=== PATIENT | female | born 1990 | race Caucasian/White ===

== ENCOUNTER → 2016-10-21 19:06 | Observation (INO) ==
[2016-10-21 15:00] LABS: Bilirubin,Urine Negative (Negative); Blood,Urine Negative (Negative); Clarity,Urine Clear (Clear); Color,Urine Yellow (Yellow); Glucose,Urine (UA) Normal (Normal); Ketones,Urine Negative (Negative); Leukocyte Esterase,Urine Small (Negative); Nitrite,Urine Negative (Negative); Protein,Urine Trace mg/dL (Neg-Trace); Specific Gravity,Urine 1.018 (1.010-1.025); Urobilinogen,Urine Normal (Normal)
[2016-10-21 15:03] LABS: Bacteria,Urine None Seen per hpf (None-Few); Hyaline Casts,Urine None Seen per lpf (None-Few); RBC,Urine 0-3 per hpf (0-3); Squamous Epithelial Cell,Urine Many per lpf (None-Few)
--- NOTE | 2016-10-21 15:19 | OB/GYN Progress Note ---
Date of Encounter: 10/21/16 Time of Encounter: 15:15 - Assessment and Plan (1) uterine contractions in third trimester, antepartum Current Visit: Yes Status: Acute admit for observation. (2) 34 weeks gestation of Current Visit: No Status: Acute labor evaluation. Subjective - Subjective Principal diagnosis: contractions Interval history: Patient is 26 y/o at 34w5d presents to labor and delivery with complaints of contractions that have off and on for a couple of days. Patient reports +FM, patient denies LOF or vaginal bleeding. Patient denies any urinary symptoms. Antepartum ROS: movement normal, contractions, no loss of fluid, no vaginal bleeding Objective - Vital Signs Vital Signs: Intake and Output 10/20/16 10/21/16 10/21/16 23:59 07:59 15:59 Other: Weight 59.6 kg Patient Weight 10/21/16 23:59 Weight 59.6 kg - Exam FHR: auscultation normal, category 1 FHR comments: 140 bpm moderate variability +15x15 accels no decels noted. irregular contractions Auscultation: bilateral: normal Abdomen: Present: normal appearance, soft, gravid Uterus: Present: normal, firm Cervical dilation: 1 Cervix effacement: 70 station: -1 - Labs Labs: Abnormal lab results Ur Leukocyte Esterase Small (Negative) H 10/21/16 14:45 Urine Microscopic WBC 3-5 per hpf (0-3) H 10/21/16 14:45 Ur Squamous Epith Cells Many per lpf (None-Few) H 10/21/16 14:45 Ur Culture Indicated? YES (NO) A 10/21/16 14:45
[~2016-10-21 19:06] MED LIST: *HR* Morphine 10 MG/ML VIAL SQ ONE; Mag Hydrox/Al Hydrox/Simeth 30 ML UDC PO PRN
== END | disposition home or self-care (01) ==
LOC: 1NENULAB
PROVIDERS: ADMIT Advanced Practice Midwife; ATTEND Obstetrics & Gynecology

== ENCOUNTER → 2016-10-22 22:10 | Observation (INO) ==
--- NOTE | 2016-10-23 11:56 | OB/GYN Progress Note ---
Date of Encounter: 10/22/16 Time of Encounter: 21:30 - Assessment and Plan (1) 35 weeks gestation of Status: Acute Pt with no cervical change and negative nitrazine. No fluid leaking while in triage. Discharge home with precautions. Pt to follow-up in the morning in the office if she has additional leaking during the night. (2) Vaginal discharge during in third trimester Status: Acute Subjective - Subjective Interval history: Pt presented to L&D at 35 weeks with c/o leaking fluid. She was evaluated by nursing staff. Antepartum ROS: loss of fluid, movement normal, no vaginal bleeding, no contractions Objective - Exam FHR comments: NST reactive per RN. Cervical dilation: 2cm per RN, unchanged during stay Comments: nitrazine negative per RN
== END | disposition home or self-care (01) ==
LOC: 1NENULAB
PROVIDERS: ADMIT Registered Nurse; ATTEND Registered Nurse

== ENCOUNTER → 2016-10-28 20:31 | Observation (INO) ==
[2016-10-28 19:12] LABS: Bilirubin,Urine Negative (Negative); Blood,Urine Negative (Negative); Clarity,Urine Clear (Clear); Color,Urine Yellow (Yellow); Glucose,Urine (UA) Normal (Normal); Ketones,Urine 15 mg/dL (Negative); Leukocyte Esterase,Urine Trace (Negative); Nitrite,Urine Negative (Negative); Protein,Urine Negative (Neg-Trace); Specific Gravity,Urine 1.015 (1.010-1.025); Urobilinogen,Urine Normal (Normal)
[2016-10-28 19:17] LABS: Bacteria,Urine None Seen per hpf (None-Few); Hyaline Casts,Urine None Seen per lpf (None-Few); RBC,Urine 0-3 per hpf (0-3); Squamous Epithelial Cell,Urine Many per lpf (None-Few)
--- NOTE | 2016-10-28 21:12 | Discharge Summary ---
Date of Encounter: 10/28/16 Time of Encounter: 21:10 - Discharge Diagnosis (1) False labor before 37 completed weeks of gestation Priority: Primary Status: Acute Comments: Patient was assess by RN No cervical change discharge home follow up in office as scheduled. Qualifiers: Trimester: third trimester Qualified Code(s): O47.03 - False labor before 37 completed weeks of gestation, third trimester (2) NST (non-stress test) reactive Priority: Secondary Status: Acute Comments: FHR baseline 135 bpm moderate variability +15x15 accels no decels noted. Occasional contraction noted. CAT 1 tracing - Discharge Medications Home Medications: Albuterol Sulfate [Albuterol Inhaler] 2 puff IH Q4HR PRN 09/15/16 [History] Calcium Carbonate [Tums] 1 tab PO PRN PRN 10/19/16 [History] Ferrous Sulfate 1 tab PO DAILY 10/19/16 [History] Ranitidine HCl [Acid Hair Rooting Machine Operator] 1 tab PO PRN PRN 10/19/16 [History] Allergies/Adverse Reactions: Allergies No Known Allergies Allergy (Verified 10/19/16 16:36) Data Procedures and tests throughout hospitalization: Laboratory Tests 10/28/16 18:53 Urine Color Yellow Urine Clarity Clear Urine pH 7.0 Ur Specific [place] 1.015 Urine Protein Negative Urine Glucose (UA) Normal Urine Ketones 15 H Urine Blood Negative Urine Nitrite Negative Urine Bilirubin Negative Urine Urobilinogen Normal Ur Leukocyte Esterase Trace H Urine Microscopic RBC 0-3 Urine Microscopic WBC 3-5 H Ur Squamous Epith Cells Many H Urine Bacteria None Seen Hyaline Casts None Seen Ur Culture Indicated? YES A Labs on day of discharge: Labs from last 24 hours 10/28/16 18:53 Urine Color Yellow Urine Clarity Clear Urine pH 7.0 Ur Specific [place] 1.015 Urine Protein Negative Urine Glucose (UA) Normal Urine Ketones 15 H Urine Blood Negative Urine Nitrite Negative Urine Bilirubin Negative Urine Urobilinogen Normal Ur Leukocyte Esterase Trace H Urine Microscopic RBC 0-3 Urine Microscopic WBC 3-5 H Ur Squamous Epith Cells Many H Urine Bacteria None Seen Hyaline Casts None Seen Ur Culture Indicated? YES A Date of admission: 10/28/16 18:42 Discharging clinician: Ruma Carlos Anticipated date of discharge: 10/28/16 - Patient Status Disposition: Home, Self-Care - Discharge Instructions Additional Instructions: LABOR AND DELIVERY DISCHARGE INSTRUCTIONS Signs and Symptoms to be Reported to your Doctor Immediately: * Sudden gush, continuous or intermittent lead of fluid from vagina (note the time of gush and color of fluid) * Onset of bright red vaginal bleeding with or without pain (if you had a vaginal exam during this visit you may notice some dark red spotting. This is normal.) * Lower abdominal cramping or backache that is premenstrual-like feeling. * More than 6 contractions in one hour. * Burning during urination, having to urinate more frequently or pain in your mid-back. * A change in the baby's activity. This could be an increase or decrease in activity. * Severe headache which does not go away with tylenol. * Sudden swelling in the face, hands, arms and/or legs. * Upper abdominal pain - sometimes associated with heartburn or nausea and is not relieved by Maalox, Mylanta or Tums. * Dizziness or blurred vision or visual disturbances (seeing stars/lights). * Kick Counts One hour after a meal, lay down on one side in a quiet place. Count the number of lupe the baby moves during an hour. If less than 6 movements, notify your physician. Diet: *Force fluids - 8-10 tall glasses of fluid per day. May include popsicles and jello. *Limit caffeine - this includes chocolate, coffee, tea, any soft drink containing such as all james, Ivan Yellow and Mountain Dew Hospital Course MIRROR PAINTER Time Attestation: Total time spent providing and/or coordinating discharge services: - VTE Reasons for not Prescribing Prophylaxis: Treatment not Indicated - Low risk for VTE
== END | disposition home or self-care (01) ==
LOC: 1NENULAB
PROVIDERS: ADMIT Obstetrics & Gynecology; ATTEND Obstetrics & Gynecology

== ENCOUNTER → 2016-10-31 01:00 | Observation (INO) ==
[2016-10-31 00:23] LABS: Bilirubin,Urine Negative (Negative); Blood,Urine Negative (Negative); Color,Urine Yellow (Yellow); Glucose,Urine (UA) Normal (Normal); Ketones,Urine Negative (Negative); Leukocyte Esterase,Urine Moderate (Negative); Nitrite,Urine Negative (Negative); Protein,Urine Negative (Neg-Trace); Specific Gravity,Urine 1.014 (1.010-1.025); Urobilinogen,Urine Normal (Normal)
[2016-10-31 00:25] LABS: Bacteria,Urine Few per hpf (None-Few); Hyaline Casts,Urine None Seen per lpf (None-Few); RBC,Urine 0-3 per hpf (0-3); Squamous Epithelial Cell,Urine Many per lpf (None-Few)
[2016-10-31 00:26] LABS: Clarity,Urine Hazy (Clear)
--- NOTE | 2016-11-09 15:05 | OB/GYN Progress Note ---
Date of Encounter: 10/31/16 Time of Encounter: 00:10 - Assessment and Plan (1) False labor Status: Acute No cervical change per RN. Discharge home with precautions. Subjective - Subjective Interval history: Pt presenting with c/o contractions and feeling dehydrated. She was evaluated by nursing staff. Antepartum ROS: movement normal, contractions, no loss of fluid, no vaginal bleeding Objective - Exam FHR comments: FHT reassuring per RN - Labs Labs: Abnormal lab results Urine Clarity Hazy (Clear) A 10/30/16 23:50 Ur Leukocyte Esterase Moderate (Negative) H 10/30/16 23:50 Urine Microscopic WBC 5-15 per hpf (0-3) H 10/30/16 23:50 Ur Squamous Epith Cells Many per lpf (None-Few) H 10/30/16 23:50 Ur Culture Indicated? YES (NO) A 10/30/16 23:50
== END | disposition home or self-care (01) ==
LOC: 1NENULAB
PROVIDERS: ADMIT Registered Nurse; ATTEND Registered Nurse

== ENCOUNTER 2016-11-21 05:30 | Inpatient (IN) ==
[2016-11-21] MEDS ORDERED: Famotidine 20 MG/2 ML VIAL IVP PRN (06:05)
[2016-11-21] MEDS ORDERED: Naloxone 0.4 MG/ML INJ IVP PRN (06:05)
[2016-11-21] MEDS ORDERED: Metoclopramide 10 MG/2 ML VIAL IVP PRN (06:05)
[2016-11-21] MEDS ORDERED: *HR* Nalbuphine 20 MG/ML AMPUL IVP PRN (06:08)
[2016-11-21] MEDS ORDERED: Oxytocin 20 units/ LR 1000 mL 20 UNIT/1,000 ML BAG IVC SCH (06:15)
[2016-11-21 07:04] LABS: Basophils % 0.3 %; Eosinophils # 0.1 K/mcL (0.0-0.6); Eosinophils % 0.6 %; Hemoglobin 9.6 g/dL (11.5-15.4); Immature Granulocytes % 0.7 % (0-4); Lymphocytes # 1.7 K/mcL (0.6-4.6); Lymphocytes % 18.8 %; Mean Corpuscular HGB Conc 34.3 g/dL (31.6-35.5); Mean Corpuscular Volume 87.5 fL (83.0-100.0); Mean Platelet Volume 10.6 fL (9.4-12.4); Monocytes # 0.8 K/mcL (0.0-1.3); Monocytes % 8.3 %; Neutrophils # 6.5 K/mcL (1.6-8.9); Platelet Count 167 K/mcL (140-400); Red Cell Distribution Width 12.5 % (11.5-14.5); Segmented Neutrophils % 71.3 %
[2016-11-21] MEDS ORDERED: Famotidine 20 MG/2 ML VIAL IVP ONE (08:19)
--- NOTE | 2016-11-21 08:40 | OB/GYN History & Physical ---
Date of Encounter: 11/21/16 Time of Encounter: 08:37 Assessment and Plan (1) 39 weeks gestation of Current visit: Yes Status: Acute Patient admitted for IOL History of Present Illness Chief complaint: IOL HPI: Ms. Swain is a 26 year old female @ 39w1d presents to labor and delivery for IOL. Patient denies any contractions, LOF or VB. Patient reports + FM. Blood type is A+, Rubella: Immune, Hep B: Negative and GBS: Negative. Past Med Surg Social Fam HX - Past Medical History Source: patient Medical history: no medical history Psychiatric history: no psych history - Past Surgical History Surgical History: appendectomy, cholecystectomy, other (laparoscopy for endometriosis) - Social History Smoking Status: Former smoker Smokeless Tobacco Status: No Alcohol use: none Drug use: none Current living situation: Home - Independent Activity Level: Independent ambulation Recent Out of Country Travel Within the Last 8 Weeks: No Exposure or Possible Exposure to Illness During Travel: No - Family History Mother Adopted: No Family Member Ethnicity: Non- Living Status: Still Living Hx Family Cardiac Disorders: No Hx Family Respiratory Disorders: No Hx Family Cancer: Yes (ovarian) Hx Family GI Disorders: No Hx Family Genitourinary Disorders: No Hx Family Endocrine Disorder: No Hx Family Musculoskeletal Disorders: No Hx Family Neuromuscular Disorders: No Hx Family Neurologic Disorders: No Hx Family HEENT Disorders: No Hx Family Autoimmune Disorders: No Hx Family Reproductive Disorders: No Hx Family Psychosocial Disorders: No Hx Family Medical Disorders: No Obstetrical History - Pregnancies : 2 Para: 1 Term: 1 : 0 Ab's: 0 Livin Medications and Allergies Albuterol Sulfate [Albuterol Inhaler] 2 puff IH Q4HR PRN 09/15/16 [History] Ferrous Sulfate 1 tab PO DAILY 10/19/16 [History] Ranitidine HCl [Acid Criminology Teacher] 1 tab PO PRN PRN 10/19/16 [History] Allergies No Known Allergies Allergy (Verified 11/21/16 06:22) Review of System OB - Constitutional Constitutional ROS IM: no chills, no fever(s), no headache(s) - Cardiovascular Cardiovascular: no chest pain, no lightheadedness, no palpitations, no syncope - Respiratory Respiratory: no dyspnea - Gastrointestinal Gastrointestinal: no abdominal pain, no constipation, no cramping, no diarrhea, no heartburn, no nausea, no vomiting - Genitourinary Genitourinary: no abnormal vaginal bleeding, no dysuria, no flank pain, no urinary frequency, no urinary incontinence, no vaginal discharge, no vaginal odor, no vaginal pruritis Exam - Constitutional Constitutional: well developed, well nourished, no acute distress, average body habitus - HEENT HEENT: Normocephaly, Mucus Membranes Moist - Neck Neck exam: full ROM, supple - Lungs Respiratory exam: CTAB - Cardiovascular Cardiovascular exam: RRR, +S1, +S2 - Abdomen Abdomen: Present: bowel sounds normal, gravid, non tender - Extremities Extremities exam: full ROM, normal capillary refill Deep Tendon Reflex Grade: 2+ Normal - Cervix Dilation: 3 Effacement: 80 Station: -1 - Uterus Uterus exam: Present: normal size, normal contour - Anus/Rectum Anus/Rectum: Present: normal perianal skin - Comments Comments: FHR 135 bpm moderate variability +15x15 accels no decels noted. CAt. 1 tracing. No contractions noted. Results Result Diagrams: 11/21/16 07:02 Abnormal lab results RBC 3.20 M/mcL (3.82-4.97) L 11/21/16 07:02 Hgb 9.6 g/dL (11.5-15.4) L 11/21/16 07:02 Hct 28.0 % (35.3-44.9) L 11/21/16 07:02 All other labs normal. - VTE Reasons for not Prescribing Prophylaxis: Treatment not Indicated - Low risk for VTE
[2016-11-21] MEDS: Ringers Solution, Lactated 1,000 ML IVC SCH ×3 (08:52→16:01)
[2016-11-21] MEDS ORDERED: Epidural Premix (fent/bupiv) 110 ML EP ONE (10:56)
[2016-11-21] MEDS ORDERED: Epidural Premix (fent/bupiv) 110 ML EP SCH (11:00)
[2016-11-21] MEDS: Ondansetron 4 MG/2 ML VIAL IVP PRN ×2 (11:53→18:20)
--- NOTE | 2016-11-21 11:56 | OB Labor Progress Note ---
Date of Encounter: 11/21/16 Time of Encounter: 11:42 Labor Progress Note - Subjective Subjective: Patient resting in bed, comfortable with epidural in place. Patient denies any pain. Discussed POC with patient. Patient denies any questions or concerns. - Cervix Cervix: 5/80/-1 - Heart Tones Heart Tones: 135 bpm moderate variability +15x15 accels noted with variable decels - Sarah Ann Sarah Ann: 2-3 min apart - Interventions Interventions: SVE, AROM moderate amount of clear fluid. IUPC placed without difficulty. Patient tolerated well. Patient repositioned. - Plan Plan: labor management.
--- NOTE | 2016-11-21 13:42 | OB Labor Progress Note ---
Date of Encounter: 11/21/16 Time of Encounter: 13:39 Labor Progress Note - Subjective Subjective: Patient resting in bed. Denies any needs at this time - Cervix Cervix: 7/90/-1 - Heart Tones Heart Tones: 125 bpm moderate variability +15x15 accels no decels noted. Cat 1 tracing - Piffard Piffard: 2-3 min apart - Interventions Interventions: SVE and repositioned. - Plan Plan: continue labor management.
[2016-11-21] MEDS ORDERED: *HR* FentaNYL (PF) 100 MCG/2 ML VIAL ONE (16:09)
--- NOTE | 2016-11-21 17:28 | OB/GYN Procedure Note ---
Delivery - Delivery Date: 11/21/16 Provider: Ruma Carlos Intrapartum events: none Delivery induction: AROM, oxytocin Delivery monitor: external FHT, external uterine, internal uterine Anesthesia: epidural Estimated Blood Loss: 200 - (s) A Delivery Date: 11/21/16 Delivery Time: 16:55 Presentation: vertex Position: OA Route of delivery: Gender: Male Viability: Viable Pounds: 6 Ounces: 0 Weight Gram: 2.715 kg at 1 minute: 8 at 5 mins: 9 Shoulder Dystocia: not encountered Placenta: spontaneous Cord: nuchal cord (x1 tight), delivered through nuchal - Repair Episiotomy: none Laceration Description: Labial (Bilateral repaired with 4-0 vicryl) - Complications Delivery complications: none Delivery comments: Called to LDR, patient feeling pressure. Patient was complete and placed in stirrups and prepped for delivery. Patient pushed out male with maternal effort. A nuchal was encountered that was tight and would no reduce. Infant delivered through nuchal. No shoulder dystocia or meconium was encountered. Vigorous male infant was placed on maternal abdomen. Cord was clamped and cut after pulsation ceased. Infant was then placed skin to skin. Bilateral labial lacerations were repaired with 4-0 vicryl. Placenta delivered spontaneously and intact. Both mother and baby are stable in recovery. - Disposition Mom disposition: stable in LDR [place] disposition: stable in LDR
--- NOTE | 2016-11-21 17:48 | Anesthesia Evaluation PreOp ---
Date of Encounter: 11/21/16 Time of Encounter: 12:00 - Past History Planned Operation: gentry Cardiac History: Denies any Significant Hx Pulmonary History: Denies Any Significant HX PERSONAL DEVELOPMENT COACH History: Denies Any Significant HX Other Medical History: Denies Any Significant HX Anesthesia History: No Prior Anesthetic Complications : Yes (39.1) Test: Positive Alcohol Use: none Drug use: none Medications and Allergies Albuterol Sulfate [Albuterol Inhaler] 2 puff IH Q4HR PRN 09/15/16 [History] Ferrous Sulfate 1 tab PO DAILY 10/19/16 [History] Ranitidine HCl [Acid Director Recreation] 1 tab PO PRN PRN 10/19/16 [History] Allergies No Known Allergies Allergy (Verified 11/21/16 06:22) - Meds/Allergy Pre-op Review Medications Reviewed: Yes Allergies Reviewed: Yes Beta Blockers on Current Med List: No Anesthesia Results - Labs 11/21/16 07:02 Anesthesia Exam Pain Scale: 6 - HEENT Pupil (Motor): Pupils equal Mallampati: II Teeth: Normal Oral Opening: Greater than 3 - PERSONAL DEVELOPMENT COACH LOC: Oriented PERSONAL DEVELOPMENT COACH Motor: Normal RUE, Normal LUE, Normal RLE, Normal LLE, Normal Face PERSONAL DEVELOPMENT COACH Sensory: Normal: RUE, LUE, RLE, LLE, Face - Cardiac Rhythm: Regular Murmur: None JVD: No Carotid Bruit: No - Pulmonary Breath Sounds: bilateral Clear Respiratory Effort: Symmetrical
--- NOTE | 2016-11-21 17:50 | Anesthesia Procedures ---
Date of Encounter: 11/21/16 Time of Encounter: 12:00 Procedures: Anesthesia - Epidural/Spinal Patient ID/Chart reviewed: Yes Patient examined: Yes OB Eval: Gestational age: 39.1 OB Eval: : 2 OB Eval: Hx Para: 1 OB Eval: Dilated at (cm): 5 OB Eval: Contractions: Non-stressed pattern Consent Obtained: Yes Supplemental Oxygen: None/Room Air Site Prep: Aseptic Technique, Sterile prep and drape, Povidone-Iodine 1% Patient position: upright Local Anesthetic: Lidocaine 1% Amount of Local Anesthetic used: 3 Touhy Needle Gauge: 18 Touhy Needle Depth (cm): 7 Catheter Depth at Skin (cm): 9 Test Dose (1.5% Lido + Epi): Volume given (mls): 3 Test Dose Result: Negative Infusion Med: 0.125% Bupivacaine w/ 2 mcg/ml Fentanyl Infusion Rate (mls/hr): [address]: Tegaderm, Tape Interspace Used: L4-L5 Loss of Resistance (PITER): Yes Blood: No CSF: No Paresthesia: No Vitals + FHT's: stable throughout see nursing notes
[2016-11-21] MEDS ORDERED: Oxytocin 20 units/ LR 1000 mL 20 UNIT/1,000 ML BAG IVC ONE ×2 (18:47→20:15)
[2016-11-21] MEDS ORDERED: Benzocaine/Menthol 56 GM AEROSOL SPRAY TP PRN (20:15)
[2016-11-21] MEDS ORDERED: Acetaminophen 325 MG TABLET PO PRN (20:15)
[2016-11-21] MEDS ORDERED: Ibuprofen 600 MG TABLET PO PRN (20:15)
[2016-11-21] MEDS ORDERED: *HR* HYDROcodone/Acet 5/325 mg TABLET PO PRN (20:15)
[2016-11-21] MEDS ORDERED: Oxytocin 20 units/ LR 1000 mL 20 UNIT/1,000 ML BAG IV SCH (20:15)
[2016-11-22 03:34] LABS: Basophils % 0.2 %; Eosinophils # 0.1 K/mcL (0.0-0.6); Eosinophils % 0.5 %; Hematocrit 25.3 % (35.3-44.9); Hemoglobin 8.8 g/dL (11.5-15.4); Immature Granulocytes % 0.5 % (0-4); Lymphocytes # 1.8 K/mcL (0.6-4.6); Lymphocytes % 13.6 %; Mean Corpuscular HGB Conc 34.8 g/dL (31.6-35.5); Mean Corpuscular Hemoglobin 30.4 pg (28.0-33.3); Mean Corpuscular Volume 87.5 fL (83.0-100.0); Mean Platelet Volume 10.3 fL (9.4-12.4); Monocytes # 0.8 K/mcL (0.0-1.3); Monocytes % 6.3 %; Neutrophils # 10.3 K/mcL (1.6-8.9); Platelet Count 133 K/mcL (140-400); Red Blood Count 2.89 M/mcL (3.82-4.97); Red Cell Distribution Width 12.3 % (11.5-14.5); Segmented Neutrophils % 78.9 %
[2016-11-22] MEDS ORDERED: Ringers Solution, Lactated 1,000 ML ONE (06:13)
[2016-11-22] MEDS: Ringers Solution, Lactated 1,000 ML IVC SCH (06:30)
[2016-11-22] MEDS ORDERED: Prenatal Vit/FA 1 EACH TABLET PO SCH (09:00)
--- NOTE | 2016-11-22 09:45 | Discharge Summary ---
Date of Encounter: 11/22/16 Time of Encounter: 09:45 - Discharge Diagnosis (1) (normal spontaneous vaginal delivery) Priority: Primary Status: Acute (2) S/P tubal ligation Priority: Secondary Status: Acute - Discharge Medications Prescriptions: HYDROcodone/Acet 5/325 mg [[place] 5-325 mg] 1 tab PO Q6HR PRN #25 tablet PRN Reason: post op pain Ibuprofen [Motrin] 600 mg PO Q6HR PRN #40 tablet PRN Reason: Cramping Home Medications: Albuterol Sulfate [Albuterol Inhaler] 2 puff IH Q4HR PRN 09/15/16 [History] Ferrous Sulfate 1 tab PO DAILY 10/19/16 [History] Ranitidine HCl [Acid Client Technical Support Associate] 1 tab PO PRN PRN 10/19/16 [History] HYDROcodone/Acet 5/325 mg [[place] 5-325 mg] 1 tab PO Q6HR PRN #25 tablet [Rx] Ibuprofen [Motrin] 600 mg PO Q6HR PRN #40 tablet 11/22/16 [Rx] Allergies/Adverse Reactions: Allergies No Known Allergies Allergy (Verified 11/21/16 06:22) Data Procedures and tests throughout hospitalization: Laboratory Tests 11/21/16 11/22/16 07:02 03:25 WBC 9.1 13.0 H RBC 3.20 L 2.89 L Hgb 9.6 L 8.8 L Hct 28.0 L 25.3 L MCV 87.5 87.5 MCH 30.0 30.4 MCHC 34.3 34.8 RDW 12.5 12.3 Plt Count 167 133 L MPV 10.6 10.3 Immature Gran % 0.7 0.5 Seg Neutrophils % 71.3 78.9 Lymphocytes % 18.8 13.6 Monocytes % 8.3 6.3 Eosinophils % 0.6 0.5 Basophils % 0.3 0.2 Neutrophils # 6.5 10.3 H Lymphocytes # 1.7 1.8 Monocytes # 0.8 0.8 Eosinophils # 0.1 0.1 Basophils # 0.0 0.0 Labs on day of discharge: Labs from last 24 hours 11/22/16 03:25 WBC 13.0 H RBC 2.89 L Hgb 8.8 L Hct 25.3 L MCV 87.5 MCH 30.4 MCHC 34.8 RDW 12.3 Plt Count 133 L MPV 10.3 Immature Gran % 0.5 Seg Neutrophils % 78.9 Lymphocytes % 13.6 Monocytes % 6.3 Eosinophils % 0.5 Basophils % 0.2 Neutrophils # 10.3 H Lymphocytes # 1.8 Monocytes # 0.8 Eosinophils # 0.1 Basophils # 0.0 - Impressions Doing well s/p with appropriate lochia and cramping. Date of admission: 11/21/16 06:02 Primary care physician: PCP NO - Patient Status Disposition: Home, Self-Care Condition: Good Functional capacity at discharge: independent ambulation Overall status at discharge: patient is progressing back to baseline - Discharge Instructions Follow Up With: Ruma Carlos CNM [Advanced Practice Nurse] - - Diet and Activity Activity: increase activity as tolerated Diet: advance to your usual diet Hospital Course PAN PULLER Time Attestation: Total time spent providing and/or coordinating discharge services: Exam - Constitutional Vitals: Temp Pulse Resp BP Pulse Ox 98.0 F 78 16 103/64 98 11/22/16 08:00 11/22/16 08:00 11/22/16 08:00 11/22/16 08:00 11/22/16 08:00 General appearance IM: A&O X 3 - Respiratory Respiratory exam: Present: CTAB - Cardiovascular Cardiovascular exam IM: Present: RRR - GI/Abdominal GI/Abdominal exam IM: normal bowel sounds - Uterus Position: 2 Fingers Below Umbilicus - Extremities Exam Extremities exam IM: Present: full ROM - Neurological Exam Neurological exam: oriented X3 - VTE Reasons for not Prescribing Prophylaxis: Treatment not Indicated - Low risk for VTE
[2016-11-22] MEDS ORDERED: Lidocaine -MPF 4% 5 ML AMPUL ONE (10:03)
[2016-11-22] MEDS ORDERED: *HR* Succinylcholine 200 MG/10 ML VIAL IVP ONE (10:03)
[2016-11-22] MEDS ORDERED: Lidocaine -MPF 2% 2 ML VIAL ONE ×2 (10:03→10:04)
[2016-11-22] MEDS ORDERED: *HR* FentaNYL (PF) 100 MCG/2 ML VIAL ONE (10:03)
[2016-11-22] MEDS ORDERED: *HR* Propofol 200 MG/20 ML VIAL IVP ONE (10:04)
[2016-11-22] MEDS ORDERED: *HR* Midazolam HCl 2 MG/2 ML VIAL ONE (10:04)
--- NOTE | 2016-11-22 10:33 | Anesthesia Evaluation PreOp ---
Date of Encounter: 11/22/16 Time of Encounter: 10:58 - Past History Planned Operation: BPS Cardiac History: Denies any Significant Hx Pulmonary History: Former smoker, Asthma (maintained on Albuterol) SURGICAL FIRST ASSISTANT History: Denies Any Significant HX Other Medical History: Denies Any Significant HX, GERD (maintained Rantidine) Anesthesia History: No Prior Anesthetic Complications, Past Anesthesia (Appy, Naomi, Dx Lap re: endometriosis) Alcohol Use: none Drug use: none Medications and Allergies Albuterol Sulfate [Albuterol Inhaler] 2 puff IH Q4HR PRN 09/15/16 [History] Ferrous Sulfate 1 tab PO DAILY 10/19/16 [History] Ranitidine HCl [Acid Per Diem Physical Therapist Assistant] 1 tab PO PRN PRN 10/19/16 [History] HYDROcodone/Acet 5/325 mg [[place] 5-325 mg] 1 tab PO Q6HR PRN #25 tablet [Rx] Ibuprofen [Motrin] 600 mg PO Q6HR PRN #40 tablet 11/22/16 [Rx] Allergies No Known Allergies Allergy (Verified 11/21/16 06:22) - Meds/Allergy Pre-op Review Medications Reviewed: Yes Allergies Reviewed: Yes Beta Blockers on Current Med List: No Anesthesia Results - Labs 11/22/16 03:25 Anesthesia Exam Vital Signs Temp Pulse Pulse Resp BP Pulse Ox 11/22/16 08:00 98.0 F 78 78 16 103/64 98 11/22/16 03:29 98 F 61 16 111/66 97 11/21/16 21:35 98 F 75 16 108/63 97 11/21/16 20:36 97.8 F 65 16 112/69 98 11/21/16 19:30 98.1 F 65 12 110/73 99 Intake and Output 11/21/16 11/22/16 11/22/16 23:59 07:59 15:59 Intake Total 1000 / 1000 1700 / 1700 Output Total 1250 / 1250 950 / 950 Balance -250 / -250 750 / 750 Intake: IV Fluids 1000 / 1000 1000 / 1000 Lactated Ringers 1,000 ML 1000 / 1000 1000 / 1000 @ 125 mls/hr IVC .Q8H ANTONI Rx#:[id number] Oral 700 / 700 Output: Urine 1250 / 1250 950 / 950 Other: Weight 59.4 kg Height: 5'5" Weight: 130# NPO (# of Hours): MNoc - HEENT Pupil (Motor): Pupils equal, EOMI Mallampati: II Teeth: Normal Oral Opening: Greater than 3 - SURGICAL FIRST ASSISTANT LOC: Oriented SURGICAL FIRST ASSISTANT Motor: Normal RUE, Normal LUE, Normal RLE, Normal LLE, Normal Face SURGICAL FIRST ASSISTANT Sensory: Normal: RUE, LUE, RLE, LLE, Face - Cardiac Rhythm: Regular Murmur: None - Pulmonary Breath Sounds: bilateral Clear Respiratory Effort: Symmetrical Anesthesia Assess/Plan ASA Score: 2 Modified Artem Scale for Level of Consciousness: Cooperative, oriented, and tranquil Anesthetic Plan: General Monitoring Plan: Standard Monitors Recovery Plan: PACU Anes Supervising Prov Stmt: PT seen/evaluated, R&B Discussed, questions answered and consent obtained. Leighann Godinez MD
[2016-11-22] MEDS ORDERED: Bupivacaine/EPI 1:200k 0.25%PF 10 ML VIAL INFILT ONE (11:20)
[2016-11-22] MEDS ORDERED: Acetaminophen IV 1,000 MG/100 ML INFUS..BTL ONE (11:40)
[2016-11-22] MEDS ORDERED: Ondansetron 4 MG/2 ML VIAL ONE (12:04)
[2016-11-22] MEDS ORDERED: Ketorolac 30 MG/ML VIAL ONE (12:04)
[2016-11-22] MEDS ORDERED: Dexamethasone 4 MG/ML VIAL ONE ×2 (12:04→12:34)
[2016-11-22] MEDS ORDERED: Ipratropium/Albuterol Neb 3 ML ONE (12:36)
--- NOTE | 2016-11-22 12:40 | OB/GYN Procedure Note ---
OB-FREIGHT BREAKER: Procedure - Diagnosis Date of procedure: 11/22/16 Pre-op diagnosis: Desires permanent sterilization Post-op diagnosis: same - Procedure Procedure: partial salpingectomy Surgeon: Luis Angel Schmidt Anesthesia Type: General Estimated blood loss (cc): 4 Fluids: crystalloid Specimens collected: Partial salpingectomy Disposition: PACU Narrative: Pt s/p of liveborn infant on 11/21. She presents now for BPS. She has signed appropriate consent. Description of procedure: Patient was taken operating room where general anesthesia was administered. She was prepped and draped in usual sterile fashion. Bladder drained of clear urine. A midline elliptical incision over patient's prior vertical incision below the umbilicus. By doing this on the patient's previous scar. Sharply dissected down to the fascia. Fascia was incised and peritoneum was immediately entered without incident. Peritoneal incision was extended. Left fallopian tube was identified and followed out to its fimbriated end. Approximately 3 similar segment of this fallopian tube was double ligated and transected. Hemostasis was ensured. Right fallopian tube was then identified and followed out to its fimbriated end. Approximately 3 cm segment of this tube was double ligated and transected with O plain catgut suture. Hemostasis was again ensured. Fascia was closed with 0 Vicryl in a running manner. Skin edges reapproximated with 4-0 Vicryl. All sponge counts counts correct patient was taken recovery in good condition.
[2016-11-22] MEDS ORDERED: Ipratropium/Albuterol Neb 3 ML IH ONE (12:45)
[2016-11-22] MEDS ORDERED: *HR* HYDROcodone/Acet 5/325 mg TABLET PO PRN (13:04)
[2016-11-22] MEDS ORDERED: Benzocaine/Menthol 56 GM AEROSOL SPRAY TP PRN (13:04)
[2016-11-22] MEDS ORDERED: Acetaminophen 325 MG TABLET PO PRN (13:04)
[2016-11-22] MEDS ORDERED: Ibuprofen 600 MG TABLET PO PRN (13:04)
--- NOTE | 2016-11-22 13:41 | Anesthesia Evaluation Post Op ---
Date of Encounter: 11/22/16 Time of Encounter: 13:15 - Vital Signs Vital Signs: Vital Signs/O2 Sat/Glucose, Most Current Temp Pulse Pulse Resp BP Pulse Ox 11/22/16 13:15 83 16 11/22/16 13:00 97.9 F 84 16 94/47 99 11/22/16 12:50 82 16 126/81 99 11/22/16 12:40 82 16 133/74 99 11/22/16 12:30 97.5 F L 78 16 101/62 97 - Lungs Lungs: Clear Ascult./Percussion - Airway Airway: Non-obstructed - Cardiovascular Regular Rate - Mental Status Mental Status: Alert & Oriented, Answers Appropriately - Pain Pain Scale: 0 Pain Scale used: Numeric (1 - 10) - Nausea Vomiting Nausea Vomiting: Not Present - Hydration Hydration: Ice chips - Discharge PostOp Status: Transfer Patient to floor Anes Supervising Prov Stmt: Pt seen/evaluated, VSS and pt has met criteria for discharge to floor. - MD Gretchen
[2016-11-22 16:25] VITALS: BP 113/72
[2016-11-23] MEDS ORDERED: Prenatal Vit/FA 1 EACH TABLET PO SCH (09:00)
== END 2016-11-22 17:40 | disposition home or self-care (01) | DRG 541 ==
LOC: 1NENULAB 06:02 → 1NENUOBS 19:30
PROVIDERS: ADMIT Obstetrics & Gynecology; ATTEND Advanced Practice Midwife